=== PATIENT | male | born 1975 | race Two or more races ===

== ENCOUNTER 2018-02-01 17:19 | Inpatient (IN) | payer SELFPAY ==
[~2018-02-01] VITALS: Ht 175.3 cm; Wt 76.7 kg
[2018-02-01] MEDS ORDERED: SODIUM CHLORIDE 0.9% 1,000 ML IV ONE (17:32)
[2018-02-01] MEDS ORDERED: HALOPERIDOL LACTATE 5MG/ML VIAL IM ONE (18:15)
[2018-02-01] MEDS ORDERED: LORAZEPAM 2MG/ML CPJ IV ONE (18:15)
[2018-02-01 19:02] LABS: BASOPHILS % 0.5 % (0.0-2.0); EOSINOPHILS % 0.2 % (0.0-5.0); HEMATOCRIT. 44.1 % (42.0-52.0); HEMOGLOBIN. 14.8 g/dL (14.0-18.0); LYMPHOCYTES % 26.4 % (20.0-50.0); MEAN CORPUSCULAR HEMOGLOBIN 30.4 pg (28.0-32.0); MEAN CORPUSCULAR VOLUME 90.5 fL (80.0-94.0); MEAN PLATELET VOLUME 9.3 fl (7.4-10.4); MONOCYTES % 7.3 % (2.0-8.0); NEUTROPHILS % 65.6 % (40.0-76.0); PLATELET 214 x1000/uL (130-400); RED BLOOD CELL COUNT 4.87 mill/uL (4.7-6.1); RED CELL DISTRIBUTION WIDTH 13.2 % (11.6-14.6)
[2018-02-01 19:04] LABS: CHLORIDE 104 mEq/L (98-107)
[2018-02-01 19:05] LABS: PROTHROMBIN TIME 10.5 sec (9.1-11.1)
[2018-02-01 19:08] LABS: ETHANOL BLOOD < 10 mg/dL
[2018-02-01 20:06] LABS: *AMPHETAMINES SCREEN URINE NEGATIVE (NEGATIVE); *BARBITURATES SCREEN URINE NEGATIVE (NEGATIVE)
[2018-02-01 20:07] LABS: *BENZODIAZEPINES SCREEN URINE NEGATIVE (NEGATIVE); *COCAINE SCREEN URINE NEGATIVE (NEGATIVE); CANNABINOID URINE SCREEN PRESUMTIVE POSITIVE (NEGATIVE); OPIATES URINE SCREEN NEGATIVE (NEGATIVE); PHENCYCLIDINE URINE SCREEN PRESUMTIVE POSITIVE (NEGATIVE)
[2018-02-01 20:09] LABS: METHADONE URINE SCREEN NEGATIVE (NEGATIVE)
[2018-02-02] MEDS ORDERED: LORAZEPAM 1MG TABLET PO ONE ×2 (05:00→09:45)
[2018-02-02] MEDS ORDERED: RISPERIDONE 0.5MG TABLET PO SCH (10:15)
[2018-02-02] MEDS ORDERED: LORAZEPAM 2MG/ML CPJ IV ONE (10:15)
[2018-02-02] MEDS ORDERED: HALOPERIDOL LACTATE 5MG/ML VIAL IM ONE (10:30)
[2018-02-02] MEDS ORDERED: SODIUM CHLORIDE 0.9% 1,000 ML IV ONE ×2 (15:23→16:30)
[2018-02-02 17:06] LABS: BASOPHILS % 0.3 % (0.0-2.0); HEMATOCRIT. 48.2 % (42.0-52.0); HEMOGLOBIN. 15.8 g/dL (14.0-18.0); LYMPHOCYTES % 19.2 % (20.0-50.0); MEAN CORPUSCULAR HEMOGLOBIN 29.7 pg (28.0-32.0); MEAN CORPUSCULAR VOLUME 90.8 fL (80.0-94.0); MEAN PLATELET VOLUME 8.8 fl (7.4-10.4); MONOCYTES % 4.8 % (2.0-8.0); NEUTROPHILS % 74.7 % (40.0-76.0); PLATELET 180 x1000/uL (130-400); RED BLOOD CELL COUNT 5.31 mill/uL (4.7-6.1); RED CELL DISTRIBUTION WIDTH 13.3 % (11.6-14.6)
[2018-02-02 17:13] LABS: CHLORIDE 105 mEq/L (98-107)
[2018-02-02 17:36] LABS: CREATINE KINASE 5884 IU/L (39-308)
[2018-02-02] MEDS ORDERED: DEXTROSE 5% WATER 1,000 ML IV ONE (17:45)
[2018-02-02] MEDS ORDERED: HYDROCODONE/ACETAMINOPHEN 10/325MG TABLET PO PRN (21:15)
[2018-02-02] MEDS ORDERED: ACETAMINOPHEN 325MG TABLET PO PRN (21:15)
[2018-02-02] MEDS ORDERED: IPRATROPIUM/ALBUTEROL 0.5-3(2.5)MG/3ML NEB INH PRN (21:15)
[2018-02-02] MEDS ORDERED: CLONIDINE 0.1MG TABLET PO PRN (21:15)
[2018-02-02] MEDS ORDERED: DOCUSATE SODIUM 100MG CAPSULE PO PRN (21:15)
[2018-02-02] MEDS ORDERED: ONDANSETRON HCL 4MG/2ML INJ IV PRN (21:15)
[2018-02-02] MEDS ORDERED: GUAIFENESIN 200MG/10ML SUGAR FREE UDC PO PRN (21:15)
[2018-02-02] MEDS ORDERED: MAGNESIUM/ALUMINUM HYDROXIDE/SIMETHICONE 30ML UDC PO PRN (21:15)
[2018-02-02] MEDS ORDERED: MORPHINE SULFATE 4 MG/ML CPJ (NOT FOR IM USE) IV PRN (21:15)
[2018-02-02] MEDS: LORAZEPAM 2MG/ML CPJ IV PRN (22:48)
[2018-02-03 00:18] LABS: CREATINE KINASE MB FRACTION 12.6 ng/mL (0.5-3.6)
[2018-02-03 00:35] VITALS: BP 127/74
[2018-02-03 00:41] LABS: CREATINE KINASE 5636 IU/L (39-308)
[2018-02-03] MEDS: SODIUM CHLORIDE 0.9% 1,000 ML IV SCH ×4 (02:16→22:42)
[2018-02-03 04:00] VITALS: BP 120/72
[2018-02-03] MEDS: LORAZEPAM 2MG/ML CPJ IV PRN ×4 (05:28→23:00)
[2018-02-03] MEDS: DIPHENHYDRAMINE 50MG/ML VIAL IV PRN ×2 (06:31→13:39)
[2018-02-03 07:12] LABS: BASOPHILS % 0.3 % (0.0-2.0); EOSINOPHILS % 1.6 % (0.0-5.0); HEMATOCRIT. 43.8 % (42.0-52.0); HEMOGLOBIN. 14.6 g/dL (14.0-18.0); LYMPHOCYTES % 26.5 % (20.0-50.0); MEAN CORPUSCULAR HEMOGLOBIN 30.1 pg (28.0-32.0); MEAN CORPUSCULAR VOLUME 90.1 fL (80.0-94.0); MEAN PLATELET VOLUME 8.8 fl (7.4-10.4); NEUTROPHILS % 64.6 % (40.0-76.0); PLATELET 191 x1000/uL (130-400); RED BLOOD CELL COUNT 4.86 mill/uL (4.7-6.1); RED CELL DISTRIBUTION WIDTH 13.5 % (11.6-14.6)
[2018-02-03 07:23] LABS: CHLORIDE 108 mEq/L (98-107)
[2018-02-03 07:55] LABS: CREATINE KINASE MB FRACTION 9.1 ng/mL (0.5-3.6)
[2018-02-03 08:00] VITALS: BP 123/68
[2018-02-03] MEDS: ENOXAPARIN 40MG/0.4ML SYR SUBCUT SCH (08:14)
[2018-02-03 08:37] LABS: CREATINE KINASE 4943 IU/L (39-308)
[2018-02-03 12:15] VITALS: BP 141/70
[2018-02-03 15:37] VITALS: BP 130/63
[2018-02-03 20:18] VITALS: BP 125/80
[2018-02-04 00:03] VITALS: BP 109/66
[2018-02-04] MEDS: DIPHENHYDRAMINE 50MG/ML VIAL IV PRN (01:32)
[2018-02-04 04:00] VITALS: BP 118/58
[2018-02-04] MEDS: LORAZEPAM 2MG/ML CPJ IV PRN (06:32)
[2018-02-04] MEDS ORDERED: RISO02 MT (07:33)
[2018-02-04] MEDS ORDERED: SERT20OR MT (07:33)
[2018-02-04] MEDS: ENOXAPARIN 40MG/0.4ML SYR SUBCUT SCH (08:48)
[2018-02-04 09:38] LABS: BASOPHILS % 0.5 % (0.0-2.0); EOSINOPHILS % 1.9 % (0.0-5.0); HEMATOCRIT. 44.4 % (42.0-52.0); HEMOGLOBIN. 14.9 g/dL (14.0-18.0); LYMPHOCYTES % 36.2 % (20.0-50.0); MEAN CORPUSCULAR HEMOGLOBIN 30.1 pg (28.0-32.0); MEAN PLATELET VOLUME 8.8 fl (7.4-10.4); MONOCYTES % 6.7 % (2.0-8.0); NEUTROPHILS % 54.7 % (40.0-76.0); PLATELET 199 x1000/uL (130-400); RED BLOOD CELL COUNT 4.94 mill/uL (4.7-6.1); RED CELL DISTRIBUTION WIDTH 13.2 % (11.6-14.6)
[2018-02-04 10:03] LABS: CREATINE KINASE MB FRACTION 7.3 ng/mL (0.5-3.6)
[2018-02-04 10:11] LABS: CHLORIDE 106 mEq/L (98-107)
[2018-02-04 10:12] LABS: CREATINE KINASE 4831 IU/L (39-308)
== END 2018-02-04 10:45 | disposition left against medical advice (07) | DRG 812 ==
LOC: EDBD 17:19 → ER 17:19 → 6WST 02-02 18:57 → EDBEDREQ 02-02 19:01 → EDBEDREQTM 02-02 19:01 → ENRESERV 02-02 23:40
PROVIDERS: ADMIT Internal Medicine; ATTEND Internal Medicine
DX: T40.991A Poisoning by other psychodysleptics [hallucinogens], accidental (unintentional), initial encounter (principal); G92 Toxic encephalopathy; E72.20 Disorder of urea cycle metabolism, unspecified; M62.82 Rhabdomyolysis; Z78.1 Physical restraint status; Y92.89 Other specified places as the place of occurrence of the external cause; Z53.21 Procedure and treatment not carried out due to patient leaving prior to being seen by health care provider; F12.90 Cannabis use, unspecified, uncomplicated; F17.210 Nicotine dependence, cigarettes, uncomplicated
CPT/HCPCS: 36415; 80048; 80305; 80307; 80329; 82140; 82550; 82553; 82962; 84484; 96361; 96372; 96374; 96376; 99285; G0482; J1200; J1630; J1650; J2060; J2270; J7030; J7070; A4315

== ENCOUNTER 2020-10-18 12:00 | Emergency (ER) | payer SELFPAY ==
[~2020-10-18] VITALS: Ht 170.2 cm; Wt 73.0 kg
[~2020-10-18 12:00] MED LIST: RISO02 MT; SERT20OR MT
[2020-10-18 12:01] VITALS: BP 120/80
== END 2020-10-19 01:22 | disposition left against medical advice (07) ==
LOC: ER 12:00
DX: F23 Brief psychotic disorder (principal); Z53.21 Procedure and treatment not carried out due to patient leaving prior to being seen by health care provider

== ENCOUNTER 2020-11-09 11:19 | Emergency (ER) | payer SELFPAY ==
[~2020-11-09] VITALS: Ht 177.8 cm; Wt 78.0 kg
[2020-11-09 12:36] LABS: BASOPHILS % 0.4 % (0.0-2.0); HEMATOCRIT. 40.4 % (42.0-52.0); HEMOGLOBIN. 13.5 g/dL (14.0-18.0); LYMPHOCYTES % 8.8 % (20.0-50.0); MEAN CORPUSCULAR HEMOGLOBIN 29.8 pg (28.0-32.0); MEAN CORPUSCULAR VOLUME 89.2 fL (80.0-94.0); MEAN PLATELET VOLUME 8.9 fl (7.4-10.4); MONOCYTES % 5.8 % (2.0-8.0); PLATELET 216 x1000/uL (130-400); RED BLOOD CELL COUNT 4.52 mill/uL (4.7-6.1); RED CELL DISTRIBUTION WIDTH 14.9 % (11.6-14.6)
[2020-11-09 12:39] LABS: CHLORIDE 110 mEq/L (98-107)
[2020-11-09] MEDS ORDERED: DIPHENHYDRAMINE 50MG/ML VIAL IV ONE (13:15)
[2020-11-09] MEDS ORDERED: IOHEXOL-350 100 ML BOTTLE ONE (14:52)
[2020-11-09] MEDS ORDERED: TETANUS, DIPHTHERIA, PERTUSSIS VAC/PF 0.5ML (>7YR OLD) IM ONE (15:15)
[2020-11-09] MEDS ORDERED: SODIUM CHLORIDE 0.9% 1,000 ML IV ONE ×2 (15:15→15:30)
[2020-11-09] MEDS ORDERED: CEFAZOLIN 1000MG PREMIX 50 ML IV ONE (15:30)
[2020-11-09] MEDS ORDERED: ONDANSETRON HCL 4MG/2ML INJ IV ONE (16:45)
[2020-11-09] MEDS ORDERED: MORPHINE SULFATE 4 MG/ML CPJ (NOT FOR IM USE) IV ONE (16:45)
[2020-11-10] MEDS ORDERED: CEFAZOLIN 1000MG PREMIX 50 ML IV SCH (00:45)
[2020-11-10] MEDS: CEFAZOLIN 1000MG PREMIX 50 ML IV SCH ×2 (12:04→18:31)
[2020-11-10] MEDS ORDERED: MORPHINE SULFATE 4 MG/ML CPJ (NOT FOR IM USE) IV ONE (20:30)
[2020-11-11] MEDS: CEFAZOLIN 1000MG PREMIX 50 ML IV SCH ×3 (02:22→18:25)
[2020-11-11 21:24] VITALS: BP 111/60
[2020-11-11] MEDS ORDERED: NICOTINE 21MG PATCH TD ONE (21:30)
== END 2020-11-11 22:25 | disposition left against medical advice (07) ==
LOC: ER 11:19
DX: S02.40FA Zygomatic fracture, left side, initial encounter for closed fracture (principal); S06.9X0A Unspecified intracranial injury without loss of consciousness, initial encounter; S02.609A Fracture of mandible, unspecified, initial encounter for closed fracture; F17.200 Nicotine dependence, unspecified, uncomplicated; Z20.822 Contact with and (suspected) exposure to COVID-19; Z98.890 Other specified postprocedural states; X58.XXXA Exposure to other specified factors, initial encounter; Y93.89 Activity, other specified; Y92.89 Other specified places as the place of occurrence of the external cause; Y99.8 Other external cause status
CPT/HCPCS: 36415; 70450; 70487; 72125; 80048; 85025; 87426; 90471; 90715; 96365; 96367; 96375; 96376; 99285; J0690; J1200; J2270; J2405; J7030; Q9967